=== PATIENT | male | born 1960 | race Hispanic/Latino ===

== ENCOUNTER 2019-08-05 13:25 | Emergency (ER) | payer OTHER ==
[~2019-08-05] VITALS: Ht 170.2 cm; Wt 99.8 kg
--- NOTE | 2019-08-05 13:29 | NUR ---
Pcts offered to patient, patient verbalized ok to speak in [place] tongue with this RN, informed him that in the event that informed consents for a procedure needed to be filled out that we would require the use of an foreign language interpreter. Patient verbalized understanding.
--- NOTE | 2019-08-05 14:26 | Diagnostic Imaging Report ---
EXAMINATION: KNEE 3VW LT - HOPD INDICATION: Knee pain, trauma COMPARISON: None FINDINGS: No acute fracture or dislocation. Alignment is anatomic. Mild tricompartmental degenerative changes with joint space narrowing and osteophyte formation. Moderate suprapatellar joint effusion. Multipartite patella. IMPRESSION: No acute osseous injury. Moderate suprapatellar joint effusion. Mild tricompartmental degenerative changes. Signed by: Arian Price MD on 08/05/2019 2:23 PM
[2019-08-05] MEDS ORDERED: NAPROXEN250 MG PO (14:57)
[2019-08-05] MEDS ORDERED: ULTRAM50 MG PO (15:01)
[2019-08-05 15:10] VITALS: BP 135/79
== END 2019-08-05 15:10 | disposition home or self-care (01) ==
LOC: FSED 13:25
DX: M25.562 Pain in left knee (principal); S83.412A Sprain of medial collateral ligament of left knee, initial encounter; R26.2 Difficulty in walking, not elsewhere classified; W01.0XXA Fall on same level from slipping, tripping and stumbling without subsequent striking against object, initial encounter; Y92.008 Other place in unspecified non-institutional (private) residence as the place of occurrence of the external cause
CPT/HCPCS: 99283